=== PATIENT | female | born 1985 | race Caucasian/White ===

== ENCOUNTER 2023-07-14 09:15 | Observation (INO) ==
[~2023-07-14 09:15] MED LIST: Naloxone 0.4 mg VIAL 0.4 mg/ml 1 ml VIAL IV PUSH PRN
[2023-07-14] MEDS ORDERED: Ondansetron 4 mg VIAL 2 MG/ML 2 ml VIAL ONE ×2 (09:46→11:15)
[2023-07-14] MEDS ORDERED: oxyCODONE SR 10 mg TAB ONE (09:46)
[2023-07-14] MEDS ORDERED: Scopolamine 1 mg/72hr PATCH ONE (09:46)
[2023-07-14 10:05] LABS: ABS Basophils 0.1 10^3/uL (0.0-0.1); ABS Eosinophils 0.1 10^3/uL (0.0-0.5); ABS Lymphocytes 1.3 10^3/uL (1.0-4.8); ABS Monocytes 0.2 10^3/uL (0.0-0.9); ABS Neutrophils 6.5 10^3/uL (1.5-7.6); Hematocrit 44.7 % (35-45); Hemoglobin 15.6 g/dL (11.5-14.3); Lymphocyte % 15.7 %; Mean Corpuscular Hemoglobin 33.2 pg (27-33); Mean Corpuscular Hgb Conc 34.9 g/dL (31-36); Mean Platelet Volume 8.4 fL (7.5-11.2); Platelet Count 271 10^3/uL (150-450); Red Blood Count 4.71 10^6/uL (3.63-4.92); Red Cell Distribution Width 13.3 % (12-17); White Blood Count 8.2 10^3/uL (3.8-11.8)
[2023-07-14 10:34] LABS: Activated Partial Thrombo Time 32.1 seconds (26.0-38.0); INR 0.97 (0.83-1.13)
[2023-07-14] MEDS: Clindamycin 900 MG/50 **NS BAG 900 MG/50 ML BAG IV ONE (10:45)
[2023-07-14] MEDS ORDERED: fentaNYL 250 mcg/5 ml 50 MCG/ML 5 ml VIAL (250 MCG) ONE (10:48)
[2023-07-14] MEDS ORDERED: Midazolam 5 mg/5 ml VIAL 1 mg/ml 5 ml VIAL (5 mg) ONE (10:48)
[2023-07-14 10:49] LABS: Anion Gap 9 mmol/L (2-16); Blood Urea Nitrogen 8 mg/dL (6-24); CO2 Carbon Dioxide 24 mmol/L (22-32); Calcium 10.1 mg/dL (8.6-10.3); Chloride 104 mmol/L (101-111); Creatinine, Serum 0.75 mg/dL (0.51-0.95); Glucose 119 mg/dL (70-100); Potassium 3.9 mmol/L (3.5-5.0); Sodium 137 mmol/L (135-145); eGFR CKD-EPI 105.7 (>60)
[2023-07-14 10:56] LABS: HCG Pregnancy < 0.60 mIU/mL
[2023-07-14] MEDS ORDERED: Iohexol 350 (CONTRAST) 100 ML PAK IV ONE ×2 (10:58→12:08)
[2023-07-14] MEDS ORDERED: Lidocaine 1% VIAL 10 MG/ML 30 ML VIAL ONE (10:58)
[2023-07-14] MEDS ORDERED: Heparin 2 UNITS/ML IVPREMIX 2,000 UNIT/1,000 ML BAG IV ONE (10:59)
[2023-07-14] MEDS ORDERED: nitroGLYCERIN DRIP 25,000 MCG/250 ML BTL ONE (10:59)
[2023-07-14] MEDS ORDERED: Naloxone 0.4 mg VIAL 0.4 mg/ml 1 ml VIAL IV PUSH PRN (11:31)
[2023-07-14] MEDS ORDERED: Flumazenil 0.5 mg/5 ml 0.1 MG/ML 5 ml VIAL IV PRN (11:31)
[2023-07-14] MEDS ORDERED: HYDROmorphone 0.5 MG/0.5 ML SYRINGE ONE ×2 (12:12→12:27)
[2023-07-14] MEDS ORDERED: HYDROmorphone 1 MG/1 ML SYRINGE ONE (12:22)
[2023-07-14] MEDS: HYDROmorphone PCA 20 MG/20 ML PCA.SYRING PCA SCH (13:29)
[2023-07-14] MEDS ORDERED: Prochlorperazine 5 mg/ml 2 ml VIAL (10 mg) ONE (13:48)
[2023-07-14] MEDS: Prochlorperazine 5 mg/ml 2 ml VIAL (10 mg) IV PRN (13:53)
[2023-07-14] MEDS: fentaNYL 100 mcg/2 ml 50 MCG/ML VIAL IV SLOW PU ONE (13:56)
[2023-07-14] MEDS: Midazolam 10 mg/10 ml VIAL 1 mg/ml 10 ml VIAL (10 mg) IV SLOW PU ONE (13:57)
[2023-07-14] MEDS: NS 0.9% 1,000 ML IV SCH (16:26)
[2023-07-14] MEDS: Ondansetron 4 mg VIAL 2 MG/ML 2 ml VIAL IV SCH (17:44)
[2023-07-15] MEDS: Ketorolac 10 mg TAB (NF) PO SCH (09:28)
[2023-07-15] MEDS: HYDROcodone/ACETAMIN 5/325 mg TAB PO PRN (09:28)
== END 2023-07-15 11:45 | disposition home or self-care (01) ==
LOC: CHICATH 09:15 → SSU 09:15 → SUATTDRO 15:53
PROVIDERS: ADMIT Radiology Diagnostic Radiology; ATTEND Student in an Organized Health Care Education/Training Program
PROC: ANG.UFE (2023-07-14 11:15)